=== PATIENT | female | born 1960 | race Caucasian/White ===

== ENCOUNTER 2018-08-21 04:27 | Emergency (ER) | payer BC ==
[2018-08-21] MEDS ORDERED: FENTANYL CITRATE INJ/PF 100 MCG/2 ML AMPUL IV ONE ×7 (04:41→18:25)
[2018-08-21] MEDS ORDERED: ONDANSETRON HCL INJ/PF 4 MG/2 ML SDV IV ONE ×3 (04:42→18:25)
--- NOTE | 2018-08-21 04:46 | ER Document Report ---
ED General <TOMASA GRIJALVA - Last Filed: 08/21/18 08:28> <RICHIE TAVERAS - Last Filed: 08/21/18 20:17> - General Stated Complaint: ABDOMINAL PAIN Time Seen by Provider: 08/21/18 04:33 Notes: Patient is a 57-year-old female that comes to the emergency department for chief complaint of abdominal pain and pain in her left shoulder. Patient is status post multiple abdominal hernia repairs that were repaired on August 16 in [facility] by Dr. Hernandez per patient, she is here with her daughter. Patient denies fever/chills. She states she is having a lot of drainage from the umbilical area, most of this is clear, some is tinged yellow. She denies bleeding. Pain in the left shoulder area with sharp, is reduced now. She denies difficulty breathing. She denies lower extremity swelling. She is a former smoker. Only medication she is taking are for the surgery (ibuprofen, Percocet, Zofran) and Celexa. (KEL GRIJALVAAN) - Related Data Allergies/Adverse Reactions: No Known Allergies Allergy (Unverified 08/21/18 04:43) Past Medical History - General Information source: Patient - Social History Smoking Status: Former Smoker Frequency of alcohol use: None Drug Abuse: None Lives with: Family Family History: Reviewed & Not Pertinent Psychiatric Medical History: Reports: Hx Depression Past Surgical History: Reports: Hx Herniorrhaphy - Immunizations Immunizations up to date: Yes Hx Diphtheria, Pertussis, Tetanus Vaccination: Yes <TOMASA GRIJALVA - Last Filed: 08/21/18 08:28> Review of Systems - Review of Systems Constitutional: No symptoms reported EENT: No symptoms reported Cardiovascular: No symptoms reported Respiratory: No symptoms reported Gastrointestinal: See HPI Genitourinary: No symptoms reported Female Genitourinary: No symptoms reported Musculoskeletal: No symptoms reported Skin: No symptoms reported Hematologic/Lymphatic: No symptoms reported Neurological/Psychological: No symptoms reported <TOMASA GRIJALVA - Last Filed: 08/21/18 08:28> Physical Exam <TOMASA GRIJALVA - Last Filed: 08/21/18 08:28> - Vital signs Vitals: Temp 99.0 F 08/21/18 04:28 - Notes Notes: GENERAL: Disheveled and somewhat ill-appearing, no severe distress HEAD: Normocephalic, atraumatic. EYES: Pupils equal, round, and reactive to light. Extraocular movements intact. ENT: Oral mucosa dry, tongue midline. Oropharynx unremarkable. Airway patent. NECK: Full range of motion. Supple. Trachea midline. LUNGS: Clear to auscultation bilaterally, no wheezes, rales, or rhonchi. No respiratory distress. Occasional congested cough. HEART: Tachycardic with normal rhythm. No murmur ABDOMEN: There are 16 ilana in a wound that is vertical over the umbilicus, there is current drainage that is mostly clear and somewhat pinkish and yellowish coming out of the umbilical area. There is no overt severe erythema or tenderness, there is generalized tenderness of the abdomen. GENITOURINARY: Deferred EXTREMITIES: Moves all 4 extremities spontaneously. No edema, normal radial and dorsalis pedis pulses bilaterally. No cyanosis. BACK: no cervical, thoracic, lumbar midline tenderness. No saddle anesthesia, normal distal neurovascular exam. NEUROLOGICAL: Alert and oriented x3. Normal speech. Cranial nerves II through XII grossly intact. SKIN: Scattered sunburn, otherwise unremarkable. (TOMASA GRIJALVA) Course - Laboratory Result Diagrams: 08/21/18 05:30 08/21/18 05:30 <TOMASA GRIJALVA - Last Filed: 08/21/18 08:28> - Laboratory Result Diagrams: 08/21/18 05:30 08/21/18 05:30 - Diagnostic Test Radiology reviewed: Image reviewed, Reports reviewed <RICHIE TAVERAS - Last Filed: 08/21/18 20:17> - Re-evaluation Re-evalutation: Patient is somewhat ill in appearance. Borderline labored breathing but clear lungs. Occasional congested cough. She was hypoxic at 87% on room air with no history of any lung disease, no reported shortness of breath, no reported chest pain. She does report some vague pain in her shoulder. Her abdomen also shows a leaking dressing with mixed serous and yellowish fluid. However the umbilical area is concerning because with evaluation with a Q-tip, the Q-tip does not seem to ever find the bottom of the wound. Concern for some dehiscence. Generalized abdominal tenderness. Patient also states she has not had a bowel movement since the surgery, approximately 5 days. However she is not vomiting. CBC shows leukocytosis at 14.7 with elevation of neutrophils but no bandemia. Chest x-ray is actually unremarkable. Patient is doing better on oxygen. Blood gas nonspecific with no acidosis. Chemistry unremarkable. Troponin is negative. Reevaluated at bedside. Patient is 91 to 92% oxygen saturation on room air. Heart rate is 100. Because of her hypoxia, recent surgery, tachycardia, discussed with patient, we will evaluate both the chest and abdomen with a CTA to rule out pulmonary embolism and attempt to rule out acute abnormality of the abdomen. 08/21/18 08:28 ip/mosaic technician stating that he will not do the CTA through the current IV, believes it will not hold. Request that another one be placed. I went and placed an ultrasound-guided IV in the right basilic vein, flushes well. ip/mosaic technician came back to me and stated this had blown. Still not have evaluation for her hypoxia status post surgery, will need to perform V/Q. (TOMASA GRIJALVA) 08/21/18 08:38 Received report from ROMINA Mcclelland introduced to patient. Fentanyl ordered waiting for the CT of the abdomen pelvis and VQ scan. Patient and daughter verbalized understanding of test. 02sat 92% 2l/nc, abd surgical site covered with dressing drainage noted 08/21/18 11:16 VQ scan negative for PE. Radiologist contacted Dr. Watson and mentioned free air in abd. CT a still pending patient provided with 75 mcgs for pain. 08/21/18 12:21 CT with IV contrast completed which shows suspicious for abscess possible ileus. Contacted who request CT of the abdomen pelvis with oral contrast. 08/21/18 12:35 Patient instructed on plan of care CT with oral contrast. She verbalized understanding. Reports her abdomen is starting to hurt more. We discussed other options for pain management at patient request to stay with the fentanyl because she does not want to feel funny she does not really like narcotics. 08/21/18 15:12 Dr. SERRANO in the emergency department for another patient. He suggested patient be transferred back to the surgeon that did her original surgery. I contacted Dr. Hernandez at [phone]. We discussed patient's complaints her CT. He agrees to accept her as patient and is arranging to have her transferred to [facility] in [facility]. She is updated on plan of care 08/21/18 15:43 bed secured at [facility] 10th floor 1041, pt informed, attempting to arrange transport 08/21/18 16:26 [facility] reports insurance will not cover the transport and patient will have to pay $2000. Contacted [facility] from [place] they are unable to transport. Discussed concerns over transfer with Dr. Serrano he will come talk with patient he feels she is safe to be transported via private vehicle. Discussed with the patient and she reports her daughter can drive her there.. Records to be copied and sent with patient. Patient will be given a dose of Zosyn here and pain medication before she leaves the department. 08/21/18 18:46 emtala completed patient provided with copies of all labs and CT. Patient medicated with pain medication and antinausea medicine. She is driving straight to [facility]. Shauna JAMES called report to nurse at [facility]. They requested patient leave the IV in because patient is a very difficult stick (RICHIE TAVERAS) - Vital Signs Vital signs: Temp Pulse Resp BP Pulse Ox 98.4 F 18 143/62 H 99 08/21/18 18:01 08/21/18 18:01 08/21/18 18:01 08/21/18 18:01 - Laboratory Laboratory results interpreted by me: 08/21/18 08/21/18 08/21/18 05:06 05:30 05:30 WBC 14.7 H MCV 98 H Seg Neuts % (Manual) 86 H Lymphocytes % (Manual) 4 L Abs Neuts (Manual) 12.6 H VBG pCO2 VBG HCO3 Direct Bilirubin 0.5 H Urine Ketones TRACE H Urine Blood MODERATE H 08/21/18 05:30 WBC MCV Seg Neuts % (Manual) Lymphocytes % (Manual) Abs Neuts (Manual) VBG pCO2 64.3 H VBG HCO3 36.0 H Direct Bilirubin Urine Ketones Urine Blood - EKG Interpretation by Me Additional EKG results interpreted by me: EKG showing sinus tachycardia at a rate of 103, nonspecific intraventricular conduction delay, QTC 461, W[place] interval of 160. No T wave inversions or ST segment changes in consecutive leads. (TOMASA GRIJALVA) Discharge <TOMASA GRIJALVA - Last Filed: 08/21/18 08:28> <RICHIE TAVERAS - Last Filed: 08/21/18 20:17> - Discharge Clinical Impression: Postoperative abdominal pain Abdominal pain Qualifiers: Abdominal location: unspecified location Qualified Code(s): R10.9 - Unspecified abdominal pain Condition: Stable Disposition: OTHER Instructions: Abdominal Pain ([facility]) Additional Instructions: *You have been evaluated for abdominal pain, POST OP, ABSCESS *You have a bed waiting for you at [facility], room 1014, Dr. Hernandez has excepted you again as a patient. Please go directly to the hospital.
[2018-08-21 05:32] LABS: APPEARANCE,URINE SLIGHTLY-CLOUDY; BILIRUBIN,URINE NEGATIVE (NEGATIVE); COLOR,URINE YELLOW; GLUCOSE, URINE NEGATIVE (NEGATIVE); KETONES,URINE TRACE mg/dL (NEGATIVE); LEUKOCYTE ESTERASE,URINE NEGATIVE (NEGATIVE); NITRITE,URINE NEGATIVE (NEGATIVE); PROTEIN,URINE NEGATIVE (NEGATIVE); URINE SPECIFIC GRAVITY 1.016; UROBILINOGEN,URINE NEGATIVE mg/dL (<2.0)
--- NOTE | 2018-08-21 05:47 | RADIOLOGY REPORT (SQ) ---
EXAM DESCRIPTION: XR CHEST 1 VIEW COMPLETED DATE/TME: 08/21/2018 04:40 CLINICAL HISTORY: 57 years, Female, left shoulder pain, cough, hypoxia COMPARISON: None. NUMBER OF VIEWS: 1 TECHNIQUE: Portable chest LIMITATIONS: None. FINDINGS: Heart size is normal. Osteopenia. Lungs are clear. No pneumothorax IMPRESSION: No acute cardiopulmonary process copyright 2010 [employer]- All Rights Reserved
[2018-08-21 05:58] LABS: VENOUS BLOOD BASE EXCESS 7.9 mmol/L; VENOUS BLOOD PCO2 64.3 mmHg (35-63); VENOUS BLOOD PH 7.37 (7.30-7.42)
[2018-08-21 05:59] LABS: HEMATOCRIT 43.2 % (36.0-47.0); HEMOGLOBIN 14.6 g/dL (12.0-15.5); MEAN CORPUSCULAR HGB CONC 33.7 g/dL (32.0-36.0); MEAN CORPUSCULAR VOLUME 98 fl (80-97); RED BLOOD COUNT 4.42 10^6/uL (3.72-5.28); RED CELL DISTRIBUTION WIDTH 12.5 % (11.5-14.0); WHITE BLOOD COUNT 14.7 10^3/uL (4.0-10.5)
[2018-08-21 06:10] LABS: ALANINE AMINOTRANSFERASE 22 U/L (9-52); ALBUMIN 3.7 g/dL (3.5-5.0); ALKALINE PHOSPHATASE 80 U/L (38-126); ANION GAP 10 (5-19); ASPARTATE AMINO TRANSFERASE 22 U/L (14-36); BILIRUBIN,DIRECT 0.5 mg/dL (0.0-0.4); BILIRUBIN,TOTAL 0.8 mg/dL (0.2-1.3); BLOOD UREA NITROGEN 10 mg/dL (7-20); CALCIUM 9.8 mg/dL (8.4-10.2); CARBON DIOXIDE 30 mmol/L (22-30); CHLORIDE 98 mmol/L (98-107); GLUCOSE 102 mg/dL (75-110); LIPASE 31.8 U/L (23-300); POTASSIUM 4.6 mmol/L (3.6-5.0); SODIUM 138.1 mmol/L (137-145); TOTAL PROTEIN 6.5 g/dL (6.3-8.2)
[2018-08-21 06:21] LABS: ABSOLUTE LYMPHOCYTES# (MANUAL) 0.7 10^3/uL (0.5-4.7); ABSOLUTE MONOCYTES # (MANUAL) 1.2 10^3/uL (0.1-1.4); ABSOLUTE NEUTROPHILS# (MANUAL) 12.6 10^3/uL (1.7-8.2); BASOPHILS % (MANUAL) 1 % (0-2); EOSINOPHILS % (MANUAL) 0 % (0-6); LYMPHOCYTES % (MANUAL) 4 % (13-45); MONOCYTES % (MANUAL) 8 % (3-13); SEGMENTED NEUTROPHILS % (MAN) 86 % (42-78); TOTAL CELLS COUNTED 100
[2018-08-21 06:22] LABS: PLATELET CLUMPS PRESENT; PLATELET COMMENT ADEQUATE; PLATELET COUNT 267 10^3/uL (150-450); STOMATOCYTES 1+
--- NOTE | 2018-08-21 07:23 | EKG REPORT ---
SEVERITY:- ABNORMAL ECG - SINUS TACHYCARDIA IVCD, CONSIDER ATYPICAL RBBB +LAFB : Confirmed by: Fabricio De MD 21-Aug-2018 07:22:37
--- NOTE | 2018-08-21 09:52 | RADIOLOGY REPORT (SQ) ---
EXAM DESCRIPTION: CHEST 2 VIEWS COMPLETED DATE/TIME: 08/21/2018 9:29 am REASON FOR STUDY: HYPOXIA, RECENT SURGERY COMPARISON: 08/21/2018 AP chest EXAM PARAMETERS: NUMBER OF VIEWS: two views TECHNIQUE: Digital Frontal and Lateral radiographic views of the chest acquired. RADIATION DOSE: NA LIMITATIONS: none FINDINGS: Bilateral free subdiaphragmatic air is present. Report called to Dr. Watson in the emergenc y room. Patient had intra- abdominal surgery at a different hospital on 08/16/2018. LUNGS AND PLEURA: Bibasilar atelectasis. No pleural effusion. No pneumothorax. MEDIASTINUM AND HILAR STRUCTURES: No masses or contour abnormalities. HEART AND VASCULAR STRUCTURES: Heart normal size. No evidence for failure. BONES: No acute findings. HARDWARE: None in the chest. OTHER: Subdiaphragmatic free air IMPRESSION: Subdiaphragmatic free air. Patient had intra- abdominal surgery at a different hospital on 08/16/2018 Bibasilar atelectasis TECHNICAL DOCUMENTATION: JOB ID: [id number] [employer]- All Rights Reserved Reading location - IP/workstation name: [email or web address]
--- NOTE | 2018-08-21 10:33 | RADIOLOGY REPORT (SQ) ---
EXAM DESCRIPTION: NM LUNG VENT/PERF SCAN COMPLETED DATE/TIME: 08/21/2018 10:19 am REASON FOR STUDY: hypoxia, recent surgery COMPARISON: None. RADIONUCLIDE AND DOSE: 5.48 millicuries TC-99m MAA Intravenous 29.6 millicuries TC-99m DTPA Inhaled aerosol TECHNIQUE: Eight views of the lungs acquired post ventilation of DTPA aerosol. Eight matching views of the lungs acquired following injection of MAA. LIMITATIONS: Shallow breaths. FINDINGS: VENTILATION: Symmetric and homogeneous distribution of DTPA aerosol during ventilatory pha se. No significant areas of photopenia. PERFUSION: Perfusion images with normal homogenous activity and no wedge-shaped or segmental defects. No ventilation-perfusion mismatches. OTHER: No other significant finding. IMPRESSION: Low probability for pulmonary embolus. TECHNICAL DOCUMENTATION: JOB ID: [id number] [employer]- All Rights Reserved Reading location - IP/workstation name: [email or web address]
--- NOTE | 2018-08-21 12:12 | RADIOLOGY REPORT (SQ) ---
EXAM DESCRIPTION: CT ABD/PELVIS WITH IV ONLY COMPLETED DATE/TIME: 08/21/2018 11:32 am REASON FOR STUDY: eval post op abdominal pain, leukocytosis COMPARISON: None. TECHNIQUE: CT scan of the abdomen and pelvis performed using helical scanning technique with dynamic intravenous contrast injection. No oral contrast. Images reviewed with lung, soft tissue, and bone windows. Reconstructed coronal and sagittal MPR images reviewed. Delayed images for evaluation of the urinary system also acquired. All images stored on PACS. All CT scanners at this facility use dose modulation, iterative reconstruction, and/or weight based d osing when appropriate to reduce radiation dose to as low as reasonably achievable (ALARA). [facility]: Dose Right [facility]: CareDose [facility]: Dose Right [facility]: Teradose 4D [facility]: [employer] CONTRAST TYPE AND DOSE: contrast/concentration: Isovue 350.00 mg/ml; Total Contrast Delivered: 95.0 ml; Total Saline Delivered: 45.8 ml RENAL FUNCTION: GFR > 60. RADIATION DOSE: CT Rad equipment meets quality standard of care and radiation dose reduction techniq ues were employed. CTDIvol: 11.1 - 15.4 mGy. DLP: 1405 mGy-cm.. LIMITATIONS: Timing of contrast. FINDINGS: LOWER CHEST: No significant findings. No nodules or infiltrates. LIVER: Small cysts in the dome of the liver. No biliary dilatation. SPLEEN: Normal size. No focal lesions. PANCREAS: No masses. No significant calcifications. No adjacent inflammation or peripancreatic fluid collections. Pancreatic duct not dilated. GALLBLADDER: No identified stones by CT criteria. No inflammatory changes to suggest cholecystitis. ADRENAL GLANDS: No significant masses or asymmetry. RIGHT KIDNEY AND URETER: No solid masses. No significant calcifications. No hydronephrosis or hyd roureter. LEFT KIDNEY AND URETER: No solid masses. No significant calcifications. No hydronephrosis or hydr oureter. AORTA AND VESSELS: No aneurysm. No dissection. Renal arteries, SMA, celiac without stenosis. RETROPERITONEUM: No retroperitoneal adenopathy, hemorrhage or masses. BOWEL AND PERITONEAL CAVITY: Pneumoperitoneum, subcutaneous gas anterior abdominal wall, anterior mid line skin ilana consistent with recent laparotomy. There is diastases of the rectus musculature an d indistinct tissue planes between subcutaneous fluid collection and the peritoneal cavity. Fluid co llection measures about 3.3 x 3.5 cm AP by transverse diameter by 10 cm craniocaudal diameter. Midli ne dilated loop of ahaustral bowel with anastomosis staple line. 6.4 cm lumen diameter. More proxim al and distal bowel loops are not dilated. Anastomosis rectosigmoid. APPENDIX: Not visualized. PELVIS: 6.5 cm cystic lesion left adnexum. ABDOMINAL WALL: See above. There is a much smaller organized fluid collection left lower quadrant an terior abdominal wall 1.6 by 3.6 cm. BONES: Nothing acute. OTHER: No other significant finding. IMPRESSION: 1. Pneumoperitoneum consistent with recent laparotomy. 2 separate fluid collections anterior abdomin al wall suspicious for abscess. Isolated dilated small bowel loop with anastomotic suture line most likely ileus. 2. Diastases of the rectus musculature. No definitive hernia identified. TECHNICAL DOCUMENTATION: JOB ID: [id number] Quality ID # [id number]: Final reports with documentation of one or more dose reduction techniques (e.g., Au tomated exposure control, adjustment of the mA and/or kV according to patient size, use of iterative reconstruction technique) 2010 [employer]- All Rights Reserved Reading location - IP/workstation name: [email or web address]
[2018-08-21] MEDS ORDERED: DEXTROSE 5%-NORMAL SALINE 1,000 ML IV ONE ×2 (15:38→15:48)
--- NOTE | 2018-08-21 15:39 | RADIOLOGY REPORT (SQ) ---
EXAM DESCRIPTION: CT ABD/PELVIS ORAL ONLY COMPLETED DATE/TIME: 08/21/2018 3:14 pm REASON FOR STUDY: ABD PAIN, WAIT 2 HOURS AFTER CONTRAST COMPARISON: CT abdomen and pelvis 08/21/2018, 1102 hours TECHNIQUE: CT scan of the abdomen and pelvis performed without intravenous or oral contrast. Images reviewed with lung, soft tissue, and bone windows. Reconstructed coronal and sagittal MPR images revi ewed. All images stored on PACS. All CT scanners at this facility use dose modulation, iterative reconstruction, and/or weight based d osing when appropriate to reduce radiation dose to as low as reasonably achievable (ALARA). [facility]: Dose Right [facility]: CareDose [facility]: Dose Right [facility]: Teradose 4D [facility]: [employer] RADIATION DOSE: CT Rad equipment meets quality standard of care and radiation dose reduction techniq ues were employed. CTDIvol: 14.0 mGy. DLP: 736 mGy-cm.mGy. LIMITATIONS: None. FINDINGS: Delayed CT abdomen and pelvis was performed, 1506 hours to allow oral contrast antegrade p assage. Oral contrast is seen in stomach small bowel and ascending colon. Patient has a small bowel to small bowel anastomosis in the midline paraumbilical abdomen. There is no CT evidence of extravasation of oral contrast at the anastomosis or from small bowel loops in the paraumbilical region. Oral contrast has not yet reached the transverse colon in the area of prior surgery. Integrity of th e transverse colon cannot be commented on. Again, multiple small air bubbles are present within the peritoneal space, along the omentum, and wit hin tissue planes along the anterior abdominal wall. A paraumbilical fluid collection with air bubbl es, 5.5 x 4 cm is present worrisome for abscess. A second, smaller abscess dissecting along the ante rior abdominal wall muscle layers is present total left of the umbilicus on axial image 49, measuring about 4 x 2.5 cm in size. Remainder of the study demonstrates the 6.5 cm cystic lesion in the left adnexa, ovarian or paraovari an in origin. IMPRESSION: Oral contrast on the delayed images is seen in mid and distal small bowel and ascending colon. There is no CT evidence of small bowel anastomotic leak. Oral contrast has not yet reached t he transverse colon, integrity of the transverse colon could not be commented on. Anterior abdominal wall abscesses in the periumbilical and left anterior abdominal wall, similar comp ared to earlier today Incompletely evaluated 6.5 cm left adnexal cyst, question ovarian or paraovarian cyst. When the igor ent's acute condition resolves, follow-up pelvic ultrasound would be useful for evaluation COMMENT: Quality ID # [id number]: Final reports with documentation of one or more dose reduction techniques (e.g., Automated exposure control, adjustment of the mA and/or kV according to patient size, use of iterative reconstruction technique) TECHNICAL DOCUMENTATION: JOB ID: [id number] [employer]- All Rights Reserved Reading location - IP/workstation name: [email or web address]
[2018-08-21] MEDS ORDERED: PIPERACILLIN/TAZOBACTAM 2.25 GM VIAL IV ONE (16:04)
--- NOTE | 2018-08-21 17:41 | PDOC CONSULTATION ---
Consultation Consult Date: 08/21/18 Provider Consulted: MAYE SIERRA Consult reason:: Complication following ventral herniorraphy with mesh 4 days ago History of Present Illness Patient complains of: sbdominal wound drainage and pain History of Present Illness: ODILIA PEDERSON is a 57 year old female 4 days post open ventral herniorraphy with mesh done by surgeon at outside institution. She reports that she was discharged to home in satisfactory conditions and that on POD#1 she noted drainage from the abdominal wound. The drainage persisted yesterday when she contacted the surgeon and she was told by him that the drainage was inconsequential, according to the patient recount. Today, due to a worsening of abdominal discomfort and persistent abdominal wound drainage, she presented to the ED where a CT scan A/P was done and it revealed small amount of intraperitoneal air togeter with fluid as well as a large amount of subcutaneous air and fluid in the midline just below the surgical incision. I was consulted to evaluate this patient and to give my opinion in regard to this case. Her initial surgical issue was a perforated left colon diverticulitis 2 years ago, followed by Madrid's pouch/colostomy, and colostomy reversal 8 month later. She eventually developed several midline fascial defects (the patient states 6) and she underwent elective ventral herniorraphy with unknown type of mesh 4 days ago. She appears appropriate and stable during the interview, concerned about her condition, and wishes to see back her original surgeon should any surgical treatment be done. Past Medical History Psychiatric Medical History: Reports: Depression Past Surgical History Past Surgical History: Reports: Herniorrhaphy Social History Lives with: Family Smoking Status: Former Smoker Family History Family History: Reviewed & Not Pertinent Parental Family History Reviewed: No Children Family History Reviewed: No Sibling(s) Family History Reviewed.: No Medication/Allergy Allergies/Adverse Reactions: No Known Allergies Allergy (Unverified 08/21/18 04:43) Physical Exam Vital Signs: Temp Pulse Resp BP Pulse Ox 98.3 F 26 H 131/67 H 92 08/21/18 16:05 08/21/18 15:00 08/21/18 07:23 08/21/18 15:00 Intake & Output 08/20/18 08/21/18 08/22/18 06:59 06:59 06:59 Weight 83.8 kg General appearance: PRESENT: mild distress, well-developed, other - facial skin is flushed GI/Abdominal exam: PRESENT: distended, tenderness - diffusely appreciated; midline incision is closed with ilana with serosangiunous fluid draining; erythema of the abdominal skin appreciated Results Laboratory Results: 08/21/18 05:30 08/21/18 05:30 08/21/18 08/21/18 08/21/18 05:06 05:30 05:30 WBC 14.7 H RBC 4.42 Hgb 14.6 Hct 43.2 MCV 98 H MCH 33.0 MCHC 33.7 RDW 12.5 Plt Count 267 Seg Neutrophils % Not Reportable Lymphocytes % Not Reportable Monocytes % Not Reportable Eosinophils % Not Reportable Basophils % Not Reportable Absolute Neutrophils Not Reportable Absolute Lymphocytes Not Reportable Absolute Monocytes Not Reportable Absolute Eosinophils Not Reportable Absolute Basophils Not Reportable VBG pH VBG pCO2 VBG HCO3 VBG Base Excess Sodium 138.1 Potassium 4.6 Chloride 98 Carbon Dioxide 30 Anion Gap 10 BUN 10 Creatinine 0.56 Est GFR ( Amer) > 60 Est GFR (Non-Af Amer) > 60 Glucose 102 Calcium 9.8 Total Bilirubin 0.8 AST 22 ALT 22 Alkaline Phosphatase 80 Total Protein 6.5 Albumin 3.7 Lipase 31.8 Urine Color YELLOW Urine Appearance SLIGHTLY-CLOUDY Urine pH 5.0 Ur Specific [place] 1.016 Urine Protein NEGATIVE Urine Glucose (UA) NEGATIVE Urine Ketones TRACE H Urine Blood MODERATE H Urine Nitrite NEGATIVE Ur Leukocyte Esterase NEGATIVE Urine WBC (Auto) 2 Urine RBC (Auto) 1 08/21/18 05:30 WBC RBC Hgb Hct MCV MCH MCHC RDW Plt Count Seg Neutrophils % Lymphocytes % Monocytes % Eosinophils % Basophils % Absolute Neutrophils Absolute Lymphocytes Absolute Monocytes Absolute Eosinophils Absolute Basophils VBG pH 7.37 VBG pCO2 64.3 H VBG HCO3 36.0 H VBG Base Excess 7.9 Sodium Potassium Chloride Carbon Dioxide Anion Gap BUN Creatinine Est GFR ( Amer) Est GFR (Non-Af Amer) Glucose Calcium Total Bilirubin AST ALT Alkaline Phosphatase Total Protein Albumin Lipase Urine Color Urine Appearance Urine pH Ur Specific [place] Urine Protein Urine Glucose (UA) Urine Ketones Urine Blood Urine Nitrite Ur Leukocyte Esterase Urine WBC (Auto) Urine RBC (Auto) 08/21/18 05:30 Troponin I < 0.012 Impressions: Chest X-Ray 08/21/18 04:40 IMPRESSION: No acute cardiopulmonary process copyright 2011 [employer]- All Rights Reserved Lung Scan-VQ NM 08/21/18 08:27 IMPRESSION: Low probability for pulmonary embolus. Abdomen/Pelvis CT 08/21/18 12:20 IMPRESSION: Oral contrast on the delayed images is seen in mid and distal small bowel and ascending colon. There is no CT evidence of small bowel anastomotic leak. Oral contrast has not yet reached the transverse colon, integrity of the transverse colon could not be commented on. Anterior abdominal wall abscesses in the periumbilical and left anterior abdominal wall, similar compared to earlier today Incompletely evaluated 6.5 cm left adnexal cyst, question ovarian or paraovarian cyst. When the patient's acute condition resolves, follow-up pelvic ultrasound would be useful for evaluation Assessment & Plan - Plan Summary Plan Summary: A/ POD#4 after open ventral herniorraphy with mesh at outside institution Patient presents with serosanguinous drainage from abdominal wound Leukocytosis CT scan A/P worrisome for intraperitoneal infection as well as subcutaneous infection due to the presence of free air, subcutaneous air with large fluid collection P/ Due to the above findings, I agree with the patient that she should be better served by being treated by the original surgeon with whom the patient has already established a long-term relationship, has performed the initial surgery and has access to all intraoperative details.
[2018-08-21 18:30] VITALS: BP 143/62
== END 2018-08-21 19:05 | disposition other institution (70) ==
LOC: ER 04:27
DX: G89.18 Other acute postprocedural pain (principal); R10.84 Generalized abdominal pain; M25.512 Pain in left shoulder; R05 Cough; R09.02 Hypoxemia; R00.0 Tachycardia, unspecified
CPT/HCPCS: 93005; 96376; 99285; 96375; 96365; 36415; 87040; 87070; 87205; 83690; 85025; 87077; 80053; 81001; 84484; 87186; 82803; 71046; 71045; 78582; 74176; 74177; 93010; A9540; A9567; J3010; J2405; J7042; J2543; Q9969

== ENCOUNTER → 2020-02-12 | Outpatient (CLI) | payer OTHER ==
[2020-02-12 08:48] LABS: ABSOLUTE EOSINOPHILS # (AUTO) 0.1 10^3/uL (0.0-0.6); ABSOLUTE LYMPHOCYTES (AUTO) 1.5 10^3/uL (0.5-4.7); ABSOLUTE MONOCYTES (AUTO) 0.4 10^3/uL (0.1-1.4); ABSOLUTE NEUT (AUTO) 4.5 10^3/uL (1.7-8.2); BASOPHILS % (AUTO) 0.6 % (0-2); EOSINOPHILS % (AUTO) 1.4 % (0-6); HEMATOCRIT 40.9 % (36.0-47.0); HEMOGLOBIN 14.5 g/dL (12.0-15.5); LYMPHOCYTES % (AUTO) 22.1 % (13-45); MEAN CORPUSCULAR HGB CONC 35.3 g/dL (32.0-36.0); MEAN CORPUSCULAR VOLUME 99 fl (80-97); MONOCYTES % (AUTO) 6.8 % (3-13); PLATELET COUNT 249 10^3/uL (150-450); RED BLOOD COUNT 4.12 10^6/uL (3.72-5.28); RED CELL DISTRIBUTION WIDTH 13.2 % (11.5-14.0); SEGMENTED NEUTROPHILS % (AUTO) 69.1 % (42-78); TOTAL CELLS COUNTED % (AUTO) 100 %; WHITE BLOOD COUNT 6.6 10^3/uL (4.0-10.5)
[2020-02-12 09:16] LABS: ALBUMIN 4.3 g/dL (3.5-5.0); ALKALINE PHOSPHATASE 123 U/L (38-126); ANION GAP 9 (5-19); ASPARTATE AMINO TRANSFERASE 49 U/L (14-36); BILIRUBIN,DIRECT 0.2 mg/dL (0.0-0.4); BILIRUBIN,TOTAL 0.4 mg/dL (0.2-1.3); BLOOD UREA NITROGEN 7 mg/dL (7-20); CALCIUM 9.8 mg/dL (8.4-10.2); CARBON DIOXIDE 28 mmol/L (22-30); CHLORIDE 102 mmol/L (98-107); GLUCOSE 112 mg/dL (75-110); POTASSIUM 4.8 mmol/L (3.6-5.0); TOTAL PROTEIN 7.4 g/dL (6.3-8.2)
--- NOTE | 2020-02-12 14:24 | RADIOLOGY REPORT (SQ) ---
EXAM DESCRIPTION: LUMBAR SPINE W/FLEX/EXT IMAGES COMPLETED DATE/TIME: 02/12/2020 9:07 am REASON FOR STUDY: OTHER CHRONIC PAIN Z13.9 ENCOUNTER FOR SCREENING, UNSPECIFIED R06.00 DYSPNEA, UN SPECIFIED G89.29 OTHER CHRONIC PAIN COMPARISON: None. NUMBER OF VIEWS: Seven view TECHNIQUE: AP lateral, oblique and flexion and extension views of lumbar spine submitted. LIMITATIONS: None. FINDINGS: MINERALIZATION: Normal. SEGMENTATION: Normal. No transitional anatomy. ALIGNMENT: Normal. FLEXION/EXTENSION: No instability. VERTEBRAE: Maintained height. No fracture or worrisome bone lesion. DISCS: Disc space narrowing at L3-L4 to a lesser extent L5-S1. POSTERIOR ELEMENTS: Pedicles and facets are intact. No pars defect or posterior arch defects. HARDWARE: None in the spine. OTHER: No other significant finding. 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 MILD DISC SPACE NARROWIN G AT L5-S1. NO INSTABILITY ON FLEXION/EXTENSION. TECHNICAL DOCUMENTATION: JOB ID: [id number] 2010 [employer] ?- All Rights Reserved Reading location - IP/workstation name: [email or web address]
--- NOTE | 2020-02-12 14:24 | RADIOLOGY REPORT (SQ) ---
EXAM DESCRIPTION: SACROILIAC JOINTS IMAGES COMPLETED DATE/TIME: 02/12/2020 9:07 am REASON FOR STUDY: OTHER CHRONIC PAIN Z13.9 ENCOUNTER FOR SCREENING, UNSPECIFIED R06.00 DYSPNEA, UN SPECIFIED G89.29 OTHER CHRONIC PAIN COMPARISON: None. NUMBER OF VIEWS: Three views. TECHNIQUE: AP and oblique views of the sacroiliac joints. LIMITATIONS: None. FINDINGS: MINERALIZATION: Normal. BONES: No acute fracture or dislocation. No worrisome bone lesions. No significant osteophytes. JOINTS: The sacroiliac joints are patent. No unusual widening, sclerosis, or fusion. SOFT TISSUES: No soft tissue swelling. No radio-opaque foreign body. OTHER: No other significant finding. IMPRESSION: NORMAL STUDY OF THE SACROILIAC JOINTS. TECHNICAL DOCUMENTATION: JOB ID: [id number] 2010 [employer]- All Rights Reserved Reading location - IP/workstation name: [email or web address]
--- NOTE | 2020-02-12 18:54 | EKG REPORT ---
SEVERITY:- ABNORMAL ECG - SINUS RHYTHM RIGHT BUNDLE BRANCH BLOCK INFERIOR INFARCT, AGE INDETERMINATE : Confirmed by: Erick Mendoza MD 12-Feb-2020 18:53:14
--- NOTE | 2020-02-13 13:26 | RADIOLOGY REPORT (SQ) ---
EXAM DESCRIPTION: KNEE LEFT 3 VIEWS IMAGES COMPLETED DATE/TIME: 02/12/2020 9:26 am REASON FOR STUDY: OTHER CHRONIC PAIN Z13.9 ENCOUNTER FOR SCREENING, UNSPECIFIED R06.00 DYSPNEA, UN SPECIFIED G89.29 OTHER CHRONIC PAIN COMPARISON: None. NUMBER OF VIEWS: Three views. TECHNIQUE: AP, lateral, and sunrise patella radiographic images acquired of the left knee. LIMITATIONS: None. FINDINGS: MINERALIZATION: Normal. BONES: No acute finding. There appear to be bone infarcts in the proximal tibia. JOINT: There is a significant joint effusion. Joint spaces are maintained. SOFT TISSUES: No soft tissue swelling. No radio-opaque foreign body. OTHER: No other significant finding. IMPRESSION: Joint effusion. No acute finding. TECHNICAL DOCUMENTATION: JOB ID: [id number] 2010 [employer]- All Rights Reserved Reading location - IP/workstation name: [email or web address]
== END ==
LOC: CCC 07:37
PROVIDERS: ATTEND Family Medicine
DX: Z13.9 Encounter for screening, unspecified (principal); R06.00 Dyspnea, unspecified; G89.29 Other chronic pain
CPT/HCPCS: 36415; 72114; 72200; 80053; 83036; 83735; 84443; 85025; 93005; 93010; 93041; 93042

== ENCOUNTER → 2020-02-26 | Outpatient (CLI) | payer OTHER ==
[2020-02-26 08:59] LABS: CHOLESTEROL 230.45 mg/dL (0-200); TRIGLYCERIDES 267 mg/dL (<150)
[2020-02-26 09:11] LABS: DIRECT LDL 165 mg/dL (<100)
[2020-02-26 09:18] LABS: VLDL CHOLESTEROL 53.4 mg/dL (10-31)
--- NOTE | 2020-02-26 10:09 | EKG REPORT ---
SEVERITY:- ABNORMAL ECG - SINUS RHYTHM RIGHT BUNDLE BRANCH BLOCK LAD = LAHB : Confirmed by: Karie Osborn MD 26-Feb-2020 10:08:49
== END ==
LOC: CCC 07:34
PROVIDERS: ATTEND Family Medicine
DX: E78.5 Hyperlipidemia, unspecified (principal); R94.31 Abnormal electrocardiogram [ECG] [EKG]
CPT/HCPCS: 36415; 80061; 93005; 93010

== ENCOUNTER → 2020-03-13 | Outpatient (CLI) | payer OTHER ==
--- NOTE | 2020-03-13 11:02 | RADIOLOGY REPORT (SQ) ---
EXAM DESCRIPTION: MRI LT LOWER JOINT WITHOUT IMAGES COMPLETED DATE/TIME: 03/13/2020 9:53 am REASON FOR STUDY: M17.2 M51.36 OTHER INTERVERTEBRAL DISC DEGENERATION, LUMBAR REGION M17.2 ELSA AL POST-TRAUMATIC OSTEOARTHRITIS OF KNEE COMPARISON: None. TECHNIQUE: Leftknee images acquired and stored on PACS. Multiplanar images include fat sensitive se quences as T1, water sensitive sequences as FST2 or STIR, cartilage sensitive sequences as FSPD, and gradient echo sequences. LIMITATIONS: Motion. FINDINGS: JOINT AND BURSAE: Joint effusion. BONE CORTEX AND MARROW: Large bone infarct proximal tibia. ACL: Intact. No degeneration or ganglion cyst. PCL: Intact. MCL: Intact. No periligamentous edema or fluid. LCL: Intact. No periligamentous edema or fluid. MEDIAL MENISCUS: Horizontal tear posterior horn. LATERAL MENISCUS: Lateral extrusion. Complex tear anterior horn near the root. MEDIAL COMPARTMENT: Moderate osteoarthritis. LATERAL COMPARTMENT: Mild osteoarthritis. PATELLA: Mild osteoarthritis. EXTENSOR MECHANISM: Intact. Quadriceps and patella tendons normal. SOFT TISSUES: Adjacent muscles and subcutaneous tissues normal. Normal flow void in popliteal artery and vein. OTHER: No other significant finding. IMPRESSION: 1. Horizontal tear posterior horn medial meniscus. Complex tear anterior horn lateral meniscus. 2. Osteoarthritis, more advanced in the medial compartment. 3. Large joint effusion. 4. Bone infarcts proximal tibia. TECHNICAL DOCUMENTATION: JOB ID: [id number] [employer]- All Rights Reserved Reading location - IP/workstation name: [email or web address]
--- NOTE | 2020-03-13 15:00 | RADIOLOGY REPORT (SQ) ---
EXAM DESCRIPTION: MRI LUMBAR SPINE WITHOUT IMAGES COMPLETED DATE/TIME: 03/13/2020 9:52 am REASON FOR STUDY: M51.36 M51.36 OTHER INTERVERTEBRAL DISC DEGENERATION, LUMBAR REGION M17.2 BILATE RAL POST-TRAUMATIC OSTEOARTHRITIS OF KNEE COMPARISON: CT of the abdomen pelvis with contrast from 08/21/2018. TECHNIQUE: Sagittal and Axial imaging includes T1, T2, STIR and gradient echo sequences. Coronal T2/ HASTE imaging. LIMITATIONS: None. FINDINGS: VISUALIZED UPPER ABDOMEN: No abnormality. SEGMENTATION: There are 5 lumbar-type vertebral bodies. There is no transitional segment at the lumb osacral junction. ALIGNMENT: Anatomic. VERTEBRAE: Intact. BONE MARROW: Modic type 2 endplate changes along the superior endplate of L1. DISC SIGNAL: The T12-L1 intervertebral disc space is narrowed and desiccated. POSTERIOR ELEMENTS: Intact. HARDWARE: None in the spine. CORD AND CONUS: The conus medullaris terminates at the level of L1 and it is normal in caliber and si gnal intensity. SOFT TISSUES: No abnormality. L1-L2: No spinal or foraminal stenosis. L2-L3: No spinal or foraminal stenosis. L3-L4: Mild osteoarthrosis of the facet and mroad-based disc bulge eccentric to the left that encroa ches on the inferior aspect of the neuroforamina without mass effect upon the nerve roots. There is no spinal stenosis or foraminal stenosis. L4-L5: No spinal or foraminal stenosis. L5-S1: No spinal or foraminal stenosis. LOWER THORACIC: No stenosis. SACRUM: Intact. OTHER: No other findings. IMPRESSION: Mild degenerative spondylosis and facet joint arthropathy of the lumbar spine without ne rve root compression or spinal/ foraminal stenosis. TECHNICAL DOCUMENTATION: JOB ID: [id number] 2010 [employer]- All Rights Reserved Reading location - IP/workstation name: [email or web address]
== END ==
LOC: RAD 08:33
PROVIDERS: ATTEND Family Medicine
DX: M51.36 Other intervertebral disc degeneration, lumbar region (principal); M17.12 Unilateral primary osteoarthritis, left knee; S83.282A Other tear of lateral meniscus, current injury, left knee, initial encounter; S83.242A Other tear of medial meniscus, current injury, left knee, initial encounter; X58.XXXA Exposure to other specified factors, initial encounter; M25.462 Effusion, left knee
CPT/HCPCS: 72148